=== PATIENT | male | born 1990 | race Caucasian/White ===

== ENCOUNTER 2023-06-18 10:37 | Emergency (ER) | payer OTHER ==
[~2023-06-18] VITALS: Ht 188 cm; Wt 92.3 kg
[2023-06-18 10:42] VITALS: BP 119/79; TEMP 98.4; O2SAT 98
[2023-06-18] MEDS ORDERED: HYDR-3713 PO (11:35)
[2023-06-18] MEDS ORDERED: CEPH500C PO (11:35)
== END 2023-06-18 11:51 | disposition home or self-care (01) ==
LOC: M ED 10:37
DX: L05.91 Pilonidal cyst without abscess (principal); F17.210 Nicotine dependence, cigarettes, uncomplicated; Z79.1 Long term (current) use of non-steroidal anti-inflammatories (NSAID); Z79.2 Long term (current) use of antibiotics

== ENCOUNTER 2023-06-22 09:26 | Emergency (ER) | payer OTHER ==
[~2023-06-22] VITALS: Ht 188 cm; Wt 91.7 kg
[~2023-06-22 09:26] MED LIST: CEPH500C PO; HYDR-3713 PO
[2023-06-22] MEDS ORDERED: HYDR-3713 PO ×2 (11:36→12:29)
[2023-06-22] MEDS ORDERED: CEPH500C PO (11:36)
[2023-06-22] MEDS ORDERED: ACET-683 PO (11:37)
[2023-06-22] MEDS ORDERED: HOME MED LIST COMPLETE! XX SCH (11:40)
[2023-06-22] MEDS: LIDOCAINE W/EPINEPHRINE 1% 20ML VIAL SC ONE (11:40)
[2023-06-22 12:42] VITALS: BP 158/91; TEMP 98; O2SAT 97
== END 2023-06-22 12:43 | disposition home or self-care (01) ==
LOC: M ED 09:26
DX: L05.91 Pilonidal cyst without abscess (principal); F17.210 Nicotine dependence, cigarettes, uncomplicated; Z79.1 Long term (current) use of non-steroidal anti-inflammatories (NSAID); Z79.899 Other long term (current) drug therapy